=== PATIENT | male | born 1965 | race American Indian/Alaskan Native ===

== ENCOUNTER 2016-11-20 20:41 | Emergency (ER) | payer OTHER ==
[2016-11-20] MEDS ORDERED: NORMODYNE IV ONE (21:13)
[2016-11-20] MEDS ORDERED: TYLENOL PO ONE (21:13)
--- NOTE | 2016-11-20 21:24 | Emergency Department Report ---
ED Fall HPI - General Chief Complaint: Fall Stated Complaint: FALL,HEAD PAIN Time Seen by Provider: 11/20/16 21:16 Source: patient, EMS Mode of arrival: Stretcher - History of Present Illness Initial Comments: Patient is a 51 yr old male with controlled DM who presents s/p fall with head injury. Pt reports he was mopping the floor, slipped, fell backwards and struck the back of his head on the metal door jam. Pt now c/o neck pain and upper back pain. No LOC, no anticoagulants on board. Pt reports he stood up and walked without issue. Otherwise no fevers, chills, vision changes, hearing changes, NVD, CP, SOB, abd pain, extremity pain, or any other complaints MD Complaint: fall - Related Data Previous Rx's Medication Instructions Recorded Last Taken Type traMADol [Ultram 50 MG tab] 50 mg PO Q6HR PRN #10 tablet 11/20/16 Unknown Rx Allergies Allergy/AdvReac Type Severity Reaction Status Date / Time No Known Allergies Allergy Unverified 11/20/16 21:06 ED Review of Systems ROS: Stated complaint: FALL,HEAD PAIN Other details as noted in HPI Comment: All other systems reviewed and negative ED Past Medical Hx - Past Medical History Previous Medical History?: Yes Hx Hypertension: Yes (possible at this time. no current history but BP elevated on scene and ED) Hx Diabetes: Yes (controls with diet) - Surgical History Past Surgical History?: No - Social History Smoking Status: Never Smoker Substance Use Type: None - Medications Home Medications: Home Medications Medication Instructions Recorded Confirmed Last Taken Type traMADol [Ultram 50 MG tab] 50 mg PO Q6HR PRN #10 tablet 11/20/16 Unknown Rx ED Physical Exam - General Limitations: No Limitations General appearance: alert, in no apparent distress - Head Head exam: Present: atraumatic, normocephalic - Eye Eye exam: Present: normal appearance - ENT ENT exam: Present: mucous membranes moist - Neck Neck exam: Present: normal inspection, tenderness (paracervical), full ROM - Respiratory Respiratory exam: Present: normal lung sounds bilaterally. Absent: respiratory distress - Cardiovascular Cardiovascular Exam: Present: regular rate, normal rhythm. Absent: systolic murmur, diastolic murmur, rubs, gallop - GI/Abdominal GI/Abdominal exam: Present: soft, normal bowel sounds - Rectal Rectal exam: Present: deferred - Extremities Exam Extremities exam: Present: normal inspection - Back Exam Back exam: Present: normal inspection, tenderness (throacic tenderness), muscle spasm, paraspinal tenderness. Absent: vertebral tenderness - Neurological Exam Neurological exam: Present: alert, oriented X3 - Psychiatric Psychiatric exam: Present: normal affect, normal mood - Skin Skin exam: Present: warm, dry, intact, normal color. Absent: rash ED Course Vital Signs 11/20/16 11/20/16 11/20/16 20:47 20:51 20:53 Temperature 98.7 F Pulse Rate 84 79 84 Respiratory 8 L 9 L 14 Rate Blood Pressure 179/105 179/105 Blood Pressure 179/105 [Right] O2 Sat by Pulse 99 99 100 Oximetry 11/20/16 21:22 Temperature Pulse Rate Respiratory Rate Blood Pressure 179/105 Blood Pressure [Right] O2 Sat by Pulse Oximetry ED Medical Decision Making - Radiology Data Radiology results: report reviewed CT head: No acute intracranial abnormality. CT C-spine: No acute fracture or subluxation Critical care attestation.: If time is entered above; I have spent that time in minutes in the direct care of this critically ill patient, excluding procedure time. ED Disposition Clinical Impression: Fall, Head trauma, Back pain, Neck pain Disposition: DISCHARGED TO HOME OR SELFCARE Is pt being admited?: No Condition: Stable Instructions: Fall Prevention (ED), Musculoskeletal Pain (ED) Prescriptions: traMADol [Ultram 50 MG tab] 50 mg PO Q6HR PRN #10 tablet PRN Reason: Pain
--- NOTE | 2016-11-20 21:44 | Cat Scan Report ---
FINAL REPORT PROCEDURE: CT CERVICAL SPINE WO CON TECHNIQUE: Computerized tomography of the cervical spine was performed from the skull base to T1 without contrast material. HISTORY: head injury COMPARISON: No prior studies are available for comparison. FINDINGS: C1-2: No significant abnormality. C2-3: No significant abnormality. C3-4: No significant abnormality. C4-5: No significant abnormality. C5-6: No significant abnormality. C6-7: No significant abnormality. C7-T1: No significant abnormality. Other: There are no fractures or malalignments. Disc spaces are normal. Facet joints are intact. Prevertebral soft tissues are normal in thickness.. IMPRESSION: No significant abnormality.
--- NOTE | 2016-11-20 21:46 | Cat Scan Report ---
FINAL REPORT PROCEDURE: CT HEAD/BRAIN WO CON TECHNIQUE: Computerized tomography of the head was performed without contrast material. HISTORY: headache COMPARISON: No prior studies are available for comparison. FINDINGS: Skull and scalp: Normal. Paranasal sinuses: Normal. Ventricles and subarachnoid spaces: Normal. Cerebrum: No evidence of hemorrhage, acute infarction or mass . Cerebellum and brainstem: No evidence of hemorrhage, acute infarction or mass. Vasculature: Normal. Comments: None. IMPRESSION: Normal Examination
[2016-11-20 22:59] VITALS: BP 135/80
== END 2016-11-20 23:09 | disposition home or self-care (01) ==
LOC: ED 20:41
DX: S09.90XA Unspecified injury of head, initial encounter (principal); M54.2 Cervicalgia; M54.6 Pain in thoracic spine; E11.9 Type 2 diabetes mellitus without complications; W19.XXXA Unspecified fall, initial encounter; Y93.89 Activity, other specified; Y99.9 Unspecified external cause status; Y92.89 Other specified places as the place of occurrence of the external cause
CPT/HCPCS: 70450; 72125; 96374

== ENCOUNTER 2017-04-13 10:34 | Emergency (ER) | payer SELFPAY ==
--- NOTE | 2017-04-13 11:31 | Emergency Department Report ---
Chief Complaint: Hyperglycemia Stated Complaint: HIGH BLOOD SUGAR Time Seen by Provider: 04/13/17 11:28 - HPI History of Present Illness: PT state he has a hx of DM. Pt states he has not needed medication in 3 years. PT states he noticed some urinary frequency and checked his bg and it was 300. PT states he used his last test strip yesterday - ROS Review of Systems: + urinary frequency + headache - vomiting - Exam Physical Exam: pt looks well, non toxic. pt has no acute resp distress MSE screening note: Focused history and physical exam performed. Due to findings the following was ordered: labs ED Disposition for MSE Condition: Stable
[2017-04-13 11:44] VITALS: BP 170/105
[2017-04-13 12:51] LABS: Basophils % (Auto) 0.4 % (0.0-1.8); Hematocrit 45.2 % (35.5-45.6); Hemoglobin 15.5 gm/dl (11.8-15.2); Mean Corpuscular HGB Conc 34 % (32-34); Mean Corpuscular Hemoglobin 33 pg (28-32); Mean Corpuscular Volume 97 fl (84-94); Platelet Count 271 K/mm3 (140-440); Red Blood Count 4.68 M/mm3 (3.65-5.03); Red Cell Distribution Width 14.2 % (13.2-15.2); White Blood Count 13.9 K/mm3 (4.5-11.0)
[2017-04-13 12:56] LABS: Alanine Aminotransferase 29 units/L (7-56); Albumin 4.2 g/dL (3.9-5); Albumin/Globulin Ratio 1.3 %; Alkaline Phosphatase 130 units/L (35-129); Anion Gap 20 mmol/L; BUN/Creatinine Ratio 21.81; Blood Urea Nitrogen 24 mg/dL (9-20); Calcium 9.4 mg/dL (8.4-10.2); Carbon Dioxide 23 mmol/L (22-30); Chloride 101.8 mmol/L (98-107); Glucose 282 mg/dL (75-100); Potassium 4.4 mmol/L (3.6-5.0); Sodium 140 mmol/L (137-145); Total Protein 7.4 g/dL (6.3-8.2)
[2017-04-13 13:17] LABS: Bilirubin,Urine NEG (Negative); Blood,Urine SM (Negative); Ketones,Urine NEG (Negative); Leukocyte Esterase,Urine NEG (Negative); Mucus,Urine 1+ /HPF; Nitrite,Urine NEG (Negative); Protein,Urine <15 mg/dL mg/dL (Negative); Urobilinogen,Urine < 2.0 mg/dL (<2.0)
--- NOTE | 2017-04-13 16:45 | Emergency Department Report ---
ED General Adult HPI - General Chief complaint: Hyperglycemia Stated complaint: HIGH BLOOD SUGAR Time Seen by Provider: 04/13/17 11:28 Source: patient Mode of arrival: Ambulatory Limitations: No Limitations - History of Present Illness Initial comments: 52-year-old male with a history of back pain really. He had recent injections, steroids, for facet pain. His blood sugars came elevated over the last several days and he's had increased thirst blurred vision and feeling fatigued. He has been on metformin in the past but has not been on any occasions for diabetes or most recently. Denies fevers chills nausea vomiting. Otherwise feels well. -: Gradual Radiation: non-radiation Consistency: constant Improves with: none Worsens with: none Associated Symptoms: denies: confusion, chest pain, cough, diaphoresis - Related Data Previous Rx's Medication Instructions Recorded Last Taken Type traMADol [Ultram 50 MG tab] 50 mg PO Q6HR PRN #10 tablet 11/20/16 Unknown Rx metFORMIN [Glucophage] 500 mg PO BID #60 tablet 04/13/17 Unknown Rx Allergies Allergy/AdvReac Type Severity Reaction Status Date / Time No Known Allergies Allergy Unverified 11/20/16 21:06 ED Review of Systems ROS: Stated complaint: HIGH BLOOD SUGAR Other details as noted in HPI Comment: All other systems reviewed and negative Constitutional: denies: chills, fever Eyes: denies: eye pain, eye discharge, vision change ENT: denies: ear pain, throat pain Respiratory: denies: cough, shortness of breath, wheezing Cardiovascular: denies: chest pain, palpitations Endocrine: no symptoms reported, increased thirst, increased urine Gastrointestinal: denies: abdominal pain, nausea, diarrhea Genitourinary: denies: urgency, dysuria Musculoskeletal: denies: back pain, joint swelling, arthralgia Skin: denies: rash, lesions Neurological: denies: headache, weakness, paresthesias Psychiatric: denies: anxiety, depression Hematological/Lymphatic: denies: easy bleeding, easy bruising ED Past Medical Hx - Past Medical History Previous Medical History?: Yes Hx Hypertension: Yes (possible at this time. no current history but BP elevated on scene and ED) Hx Diabetes: Yes (controls with diet) Additional medical history: ALEIDA injections for back pain - Surgical History Past Surgical History?: Yes Additional Surgical History: left arm surgery - Social History Smoking Status: Current Every Day Smoker Substance Use Type: Alcohol, Prescribed - Medications Home Medications: Home Medications Medication Instructions Recorded Confirmed Last Taken Type traMADol [Ultram 50 MG tab] 50 mg PO Q6HR PRN #10 tablet 11/20/16 Unknown Rx metFORMIN [Glucophage] 500 mg PO BID #60 tablet 04/13/17 Unknown Rx ED Physical Exam - General Limitations: No Limitations General appearance: alert, in no apparent distress - Head Head exam: Present: atraumatic, normocephalic - Eye Eye exam: Present: normal appearance. Absent: scleral icterus, conjunctival injection - ENT ENT exam: Present: mucous membranes moist - Neck Neck exam: Present: normal inspection - Respiratory Respiratory exam: Present: normal lung sounds bilaterally. Absent: respiratory distress, wheezes, rales - Cardiovascular Cardiovascular Exam: Present: regular rate, normal rhythm, normal heart sounds. Absent: systolic murmur, diastolic murmur, rubs, gallop - GI/Abdominal GI/Abdominal exam: Present: soft, normal bowel sounds - Rectal Rectal exam: Present: deferred - Extremities Exam Extremities exam: Present: normal inspection - Back Exam Back exam: Present: normal inspection - Neurological Exam Neurological exam: Present: alert, oriented X3 - Psychiatric Psychiatric exam: Present: normal affect, normal mood - Skin Skin exam: Present: warm, dry, intact, normal color. Absent: rash ED Course Vital Signs 04/13/17 11:40 Temperature 97.9 F Pulse Rate 65 Respiratory 18 Rate Blood Pressure 170/105 O2 Sat by Pulse 100 Oximetry ED Medical Decision Making - Lab Data Result diagrams: 04/13/17 12:10 04/13/17 12:10 Laboratory Results - last 24 hr 04/13/17 04/13/17 04/13/17 11:36 12:10 12:10 WBC 13.9 H RBC 4.68 Hgb 15.5 H Hct 45.2 MCV 97 H MCH 33 H MCHC 34 RDW 14.2 Plt Count 271 Lymph % (Auto) 19.2 [place] % (Auto) 6.9 Eos % (Auto) 0.0 Baso % (Auto) 0.4 Lymph # 2.7 [place] # 1.0 H Eos # 0.0 Baso # 0.1 Seg Neutrophils % 73.5 H Seg Neutrophils # 10.2 H VBG pH Sodium 140 Potassium 4.4 Chloride 101.8 Carbon Dioxide 23 Anion Gap 20 BUN 24 H Creatinine 1.1 Estimated GFR > 60 BUN/Creatinine Ratio 21.81 Glucose 282 H POC Glucose 283 H Calcium 9.4 Total Bilirubin 0.30 AST 14 ALT 29 Alkaline Phosphatase 130 H Total Protein 7.4 Albumin 4.2 Albumin/Globulin Ratio 1.3 Urine Color Urine Turbidity Urine pH Ur Specific [place] Urine Protein Urine Glucose (UA) Urine Ketones Urine Blood Urine Nitrite Urine Bilirubin Urine Urobilinogen Ur Leukocyte Esterase Urine WBC (Auto) Urine RBC (Auto) Urine Mucus 04/13/17 04/13/17 12:10 12:36 WBC RBC Hgb Hct MCV MCH MCHC RDW Plt Count Lymph % (Auto) [place] % (Auto) Eos % (Auto) Baso % (Auto) Lymph # [place] # Eos # Baso # Seg Neutrophils % Seg Neutrophils # VBG pH 7.373 Sodium Potassium Chloride Carbon Dioxide Anion Gap BUN Creatinine Estimated GFR BUN/Creatinine Ratio Glucose POC Glucose Calcium Total Bilirubin AST ALT Alkaline Phosphatase Total Protein Albumin Albumin/Globulin Ratio Urine Color Yellow Urine Turbidity Clear Urine pH 5.0 Ur Specific [place] 1.029 Urine Protein <15 mg/dl Urine Glucose (UA) >=500 Urine Ketones Neg Urine Blood Sm Urine Nitrite Neg Urine Bilirubin Neg Urine Urobilinogen < 2.0 Ur Leukocyte Esterase Neg Urine WBC (Auto) 1.0 Urine RBC (Auto) 10.0 Urine Mucus 1+ - Medical Decision Making 52-year-old male with known history of diabetes in the past here with elevated blood sugars. Sugar appears to the 200s. Plan to discharge the patient home on metformin. Patient is comfortable with this plan. Discussed the need to check his blood sugars closely. Portions of this chart were dictated with dictation software. There may be dictation errors contained within this note. Critical care attestation.: If time is entered above; I have spent that time in minutes in the direct care of this critically ill patient, excluding procedure time. ED Disposition Clinical Impression: Diabetes type 2, uncontrolled Disposition: DC-01 TO HOME OR SELFCARE Is pt being admited?: No Condition: Stable Instructions: Diabetes Mellitus Type 2 in Adults (ED) Additional Instructions: Follow-up with your primary care doctor next week for blood pressure and blood sugar checks. Prescriptions: metFORMIN [Glucophage] 500 mg PO BID #60 tablet Referrals: PRIMARY CARE, [Primary Care Provider] - 3-5 Days
== END 2017-04-13 16:53 | disposition home or self-care (01) ==
LOC: ED 10:34
DX: E11.65 Type 2 diabetes mellitus with hyperglycemia (principal); I10 Essential (primary) hypertension; F17.210 Nicotine dependence, cigarettes, uncomplicated
CPT/HCPCS: 36415; 80053; 81001; 82805; 82962; 85025; 99283